=== PATIENT | female | born 2000 | race Caucasian/White ===

== ENCOUNTER → 2024-07-28 | Outpatient (CLI) | payer OTHER, SELFPAY ==
[2024-07-28 18:16] LABS: Absolute Lymphocyte Count 1.81 X10^3/uL (0.83-4.51); Basophil# 0.04 X10^3/uL; Basophil% 0.6 % (0-1); Eosinophil# 0.07 X10^3/uL; Eosinophils% 1.1 % (0-5); Hematocrit 37.8 % (37-47); Hemoglobin 12.8 g/dL (12.0-15.0); Lymphocyte # 1.81 X10^3/ul (0.83-4.51); Lymphocyte % 28.1 % (19-41); Mean Corp Hgb Conc 33.9 g/dL (32-36); Mean Corpuscular Hgb 30.9 pg (27.0-32.0); Mean Corpuscular Volume 91.3 fL (81-99); Mean Platelet Vol. 10.7 fl (6.2-12.0); Monocyte# 0.48 X10^3/uL; Monocyte% 7.5 % (0-10); NRBC Flagged by Analyzer 0 % (0-5); Neutrophil # 4.01 X10^3/uL (2.7-7.7); Neutrophil % 62.4 % (47-70); Platelet Count 290 K/mm3 (150-450); RBC Distribution Width CV 11.7 % (11.6-14.6); RBC Distribution Width SD 39.1 fl (35.1-43.9); Red Blood Count 4.14 M/mm3 (4.2-5.4); White Blood Count 6.4 K/mm3 (4.4-11.0)
[2024-07-28 19:09] LABS: Follicle Stimulating Hormone 8.1 mIU/mL
[2024-07-28 19:39] LABS: hCG Titer Quant., Serum < 1 mIU/mL (<9 non-preg)
== END | disposition home or self-care (01) ==
LOC: MTLAB 16:50
PROVIDERS: PCP Internal Medicine; Referring Provider Dermatology Pediatric Dermatology; Visit Provider Dermatology Pediatric Dermatology
DX: L64.8 Other androgenic alopecia (principal); E28.2 Polycystic ovarian syndrome
CPT/HCPCS: 36415; 82157; 82627; 83001; 84270; 84402; 84403; 84439; 84443; 84702; 85025; 82626